=== PATIENT | female | born 1970 | race African-American/Black ===

== ENCOUNTER → 2018-02-16 | Day surgery (SDC) | payer OTHER ==
[~2018-02-16] VITALS: Ht 144.8 cm; Wt 54.4 kg
[~2018-02-16] MED LIST: ADVAIR 250-501 EACH INH; ALBUTEROL2.5 MG/3 M INH/SOL; AMLODIPINE BESY10 M1 PO; IPRAT-ALBUT 0.5-3 ML INH; LISINOPRIL10 M1 PO; PROVENTIL HFA6.7 GM INH
--- NOTE | 2018-02-19 20:39 | Operative Report ---
Operative/Inv Procedure Report Surgery Date: 02/16/18 Name of Procedure: Open mesh (6 cm) repair of recurrent ventral incisional incarcerated hernia Pre-Operative Diagnosis: Recurrent ventral incisional incarcerated hernia Post-Operative Diagnosis: Same, scar Estimated Blood Loss: scant Surgeon/Packager Or Packer And Weigher: Tracie VALADEZ,Eric GRIFFITH Anesthesia: general endotracheal tube Operative/Procedure Note Note: Patient was placed on the OR table in the supine position. After successful induction of general anesthesia, another timeout was done, antibiotics given, the abdomen was clipped prepped and draped in the usual sterile fashion. After looking at the CT, an incision was planned overlying the hernia, 4 cm long, deepest part of umbilicus at inferior 1 cm gabriella, this portion of scar was infiltrated with local anesthetic and then made with a 15 blade. This was deepened with cautery and the conglomerate of incarcerated herniated fat, sac, scar and ethibond were dissected and excised circumferentially off the fascia, which was pretty limited, just took it back laterally to edges of rectus bilaterally, defining the true edges of the defect. It was oriented vertically, we then inserted the Ventralex coated 6 centimeter mesh underneath the defect using the tails to center it secured in 4 places, underneath with 2-0 proline, and then closed over the mesh with 2-0 Maxon sutures, incorporating the mesh with each bite. The subcutaneous layer and Mady's fascia were reapproximated to cover. The incision was irrigated and then the skin was reapproximated with a running subcuticular 4-0 Biosyn, followed by Mastisol, Steri-Strips Telfa Tegaderm. EBL minimal lap and sponge counts correct wound expectancy clean IV fluids crystalloid complications none patient tolerated the procedure well was awakened extubated returned to the recovery room in satisfactory condition.
== END ==
LOC: STS 03:45
DX: K43.0 Incisional hernia with obstruction, without gangrene (principal); I10 Essential (primary) hypertension; J45.909 Unspecified asthma, uncomplicated; F17.200 Nicotine dependence, unspecified, uncomplicated
CPT/HCPCS: 88305; J0131; J0690; J2250